=== PATIENT | male | born 1980 | race Caucasian/White ===

== ENCOUNTER 2018-08-15 20:14 | Emergency (ER) | payer OTHER ==
[~2018-08-15] VITALS: Ht 175.3 cm; Wt 88.5 kg
[2018-08-15 20:28] VITALS: BP 144/102
[2018-08-15] MEDS ORDERED: HYDR-3165 PO (20:48)
[2018-08-15] MEDS ORDERED: CYCL-331 PO (20:48)
--- NOTE | 2018-08-15 20:53 | ED.ADGEN ---
Past History Past Medical History: No Pertinent History Past Surgical History: No Surgical History Drug Use: Marijuana Adult General Chief Complaint Chief Complaint .Low back pain HPI HPI Patient is a 37 old male who presents with acute onset right lower lumbar back pain radiating to right buttocks. Patient states he is bending over yesterday evening to try shoelaces when he felt a sudden popping sensation. Denies motor weakness loss of sensation. No urinary or bowel incontinence. No saddle anesthesia. Patient took [id number] pain medication without relief of symptoms Review of Systems Review of Systems ROS as per HPI All other systems were reviewed and found to be within normal limits, except as documented in this note. Current Medications Current Medications Current Medications Medications (Trade) Dose Ordered Sig/Efraín Start Time Stop Time Status Last Admin Dose Admin Morphine Sulfate (Morphine 10mg Syringe) 10 mg 1X ONCE 08/15/18 20:45 08/15/18 20:46 UNV Ondansetron HCl (Zofran Odt) 4 mg 1X ONCE 08/15/18 20:45 08/15/18 20:46 UNV Physical Exam Physical Exam Constitutional: Well developed, well nourished, no acute distress, non-toxic appearance. [] HENT: Normocephalic, atraumatic, bilateral external ears normal, oropharynx moist, no oral exudates, nose normal. [] soft, no tenderness, no masses, no pulsatile masses. [] Skin: Warm, dry, no erythema, no rash. [] Back: Right lower lumbar paravertebral back pain, no CVA tenderness. [] Neurologic: Alert and oriented X 3,R lower extremity, normal motor function, normal sensory function, no focal deficits noted. [] Psychologic: Affect normal, judgement normal, mood normal. [] Current Patient Data Vital Signs Vital Signs Date Time Temp Pulse Resp B/P (MAP) Pulse Ox O2 Delivery O2 Flow Rate FiO2 08/15/18 20:28 98.2 77 20 97 Room Air EKG EKG [] Radiology/Procedures Radiology/Procedures [] Course & Med Decision Making Course & Med Decision Making Pertinent Labs and Imaging studies reviewed. (See chart for details) [Acute onset back pain without neurologic deficits. Pain addressed. Recommend supportive care with PCP follow-up. Courtesy work note provided] Final Impression Final Impression [1. Lumbar sprain] Timoteo Disclaimer Timoteo Disclaimer This electronic medical record was generated, in whole or in part, using a voice recognition dictation system. TRISH VILLALOBOS DO Aug 15, 2018 20:53
[2018-08-15] MEDS ORDERED: MORPHINE SULFATE 10 MG/ML SYRINGE. IM ONE (21:15)
[2018-08-15] MEDS ORDERED: ONDANSETRON ODT 4 MG TAB.RAPDIS PO ONE (21:15)
== END 2018-08-15 21:09 | disposition home or self-care (01) ==
LOC: ER 20:14
DX: S33.5XXA Sprain of ligaments of lumbar spine, initial encounter (principal); X50.1XXA Overexertion from prolonged static or awkward postures, initial encounter; Y93.89 Activity, other specified; Y92.89 Other specified places as the place of occurrence of the external cause; Y99.8 Other external cause status
CPT/HCPCS: 96372; 99283; J2270; Q0162